=== PATIENT | male | born 1955 | race Caucasian/White ===

== ENCOUNTER 2017-03-12 06:22 | Outpatient (CLI) | payer BC ==
[2017-03-12] VITALS (8 sets, daily range): BP systolic 105–138; BP diastolic 69–84; PULSE 56–70; TEMP 97.5
[~2017-03-12] VITALS: Ht 180.3 cm; Wt 88.6 kg
[2017-03-12 06:50] LABS: HEMATOCRIT 48.1 % (42.0-52.0); HEMOGLOBIN 16.7 g/dl (13.5-18.0); MEAN CELL VOLUME 87 fl (80.0-100.0); MEAN CORPUSCULAR HEMOGLOBIN 30 pg (27.0-31.0); MEAN CORPUSCULAR HGB CONC 35 g/dl (33.0-37.0); MEAN PLATELET VOLUME 10.2 fl (7.4-10.4); PLATELET COUNT 163 K/mm3 (130-400); RED BLOOD COUNT 5.51 M/mm3 (4.20-5.60); REDCELL DISTRIBUTION WIDTH-CV 12.8 % (11.5-14.5); WHITE BLOOD COUNT 7.6 K/mm3 (4.8-10.8)
[2017-03-12 06:54] LABS: PROTHROMBIN TIME 11.2 SECONDS (9.7-12.8)
[2017-03-12 07:09] LABS: CALCIUM 9.3 mg/dL (8.4-10.2); CREATININE, serum 0.84 mg/dL (0.66-1.25); POTASSIUM 3.8 mmol/L (3.4-5.0)
[2017-03-12] MEDS ORDERED: PLAVIX 75MG TAB75 MG PO (07:15)
[2017-03-12] MEDS ORDERED: ZOCOR 20MG20 MG PO (07:15)
[2017-03-12] MEDS ORDERED: ASPIRIN 81M81 MG/TA2 PO (07:16)
[2017-03-12] MEDS ORDERED: PRILOSEC 20MG20 MG PO (07:16)
[2017-03-12] MEDS ORDERED: PEPCID40 MG PO (09:02)
== END 2017-03-12 09:42 | disposition home or self-care (01) ==
LOC: COL.RAD 06:22
PROVIDERS: Internal Medicine Cardiovascular Disease
DX: G45.9 Transient cerebral ischemic attack, unspecified (principal); E78.00 Pure hypercholesterolemia, unspecified; R00.2 Palpitations
CPT/HCPCS: G9654; J2704; J3010